=== PATIENT | female | born 1975 | race African-American/Black ===

== ENCOUNTER 2016-08-24 22:48 | Emergency (ER) | payer OTHER ==
--- NOTE | ~2016-08-24 | CR117 ---
[facility] A Service of [facility] & [facility] RADIOLOGY TEXT RESULTS PATIENT: PRISCILLA POOLE LOCATION: [facility] : 77 UNIT #: [id number] AGE: [address]: Sue, Primary Care Physician SEX: F ORDER DR: [id number] [place], [place] [address] [id number] P MR#: [id number] Acc #: [id number] NAME: PRISCILLA POOLE : 1975 SEX: F STUDY DATE/TIME: 08/24/2016 23:46 UNIT: [facility] ROOM: STUDY DESCRIPTION: CR Finger 2 View Thumb Rt Ordering Physician: Jaswant Rodrigez M.D. Primary Care Physician: Primary Care Physician No MEDICAL IMAGING REPORT This report is preliminary unless electronic signature is present EXAM Right thumb INDICATIONS Right thumb pain status post fall. FINDINGS 3 views of the right thumb without comparison. There is no acute fracture or dislocation. Alignment is anatomic. No foreign body. IMPRESSION No acute findings. Dictated by... Calvin Caceres M.D. THIS IS AN ELECTRONICALLY VERIFIED REPORT Calvin Caceres M.D. at 08/25/2016 1:22 AM PAWAN/andree TD: 08/25/2016 00:34 JOB #: [id number] MEDICAL IMAGING REPORT Page 1 of 1 COPY
[~2016-08-24 22:48] MED LIST: ALBUTEROL17 GM INH; BENZONATATE PO; DICLOFENAC PO; ORUDIS75 M1 DOB; ZITHROMAX PO
== END 2016-08-25 04:45 | disposition home or self-care (01) ==
LOC: CED 22:48
DX: S63.601A Unspecified sprain of right thumb, initial encounter (principal); F17.210 Nicotine dependence, cigarettes, uncomplicated; Z88.8 Allergy status to other drugs, medicaments and biological substances; W50.2XXA Accidental twist by another person, initial encounter; Y92.009 Unspecified place in unspecified non-institutional (private) residence as the place of occurrence of the external cause
CPT/HCPCS: 29125; 73140; 99283